=== PATIENT | female | born 1990 | race African-American/Black ===

== ENCOUNTER 2018-10-02 09:26 | Emergency (ER) | payer MEDICAID, SELFPAY ==
[2018-10-02 09:27] VITALS: BP 99/65; PULSE 68; RESP 16; TEMP 36.8; O2SAT 98; BMI 35.4
--- NOTE | 2018-10-02 09:32 | ED.DCSUM_ITS ---
History of Present Illness Chief Complaint: Syncope Informant: Patient Onset: Today Context: Sudden Onset Timing: Continuous Quality: Fatigue Location: Generalized Current Severity: Mild Maximum Severity: Moderate Worsened by: Uncertain Relieved by: Nothing Associated Symptoms: Lightheadedness, lack of energy Narrative: Patient is a 27-year-old female who presents with sudden onset of fatigue and lack of energy. Today was her first day at work. She was helping by a coworker to the floor. She states she did not feel well. She became lightheaded. Coworker assisted her to the ground. She had no loss of conscious. She had no incontinence of urine or stool. There was no seizure activity. She reports generalized weakness. She is presently taking Metformin for polycystic ovarian syndrome. She denies fever, chills night sweats. She denied ocular, visual or auditory symptoms. She denied cardiac or respiratory symptoms. She denied vomiting or diarrhea. She denies paresthesia, anesthesia or motor weakness. She denied incontinence of urine or stool. Prior similar symptoms: No Recent Illness/Hospitalization: No - Past Medical History (1) Polycystic ovarian syndrome Status: Acute Past Medical History - Allergies and Home Meds Allergies/Adverse Reactions: Allergies shellfish derived Allergy (Verified 07/13/14 19:10) Anaphylaxis Primary Care Physician: Care Physician,No Primary [Primary Care Provider] - Prior records reviewed: Yes Lives: Alone - Patient legally from Smoking Status: Never smoker Alcohol: None Review of Systems General: Reports: Malaise Eyes: Denies: Visual changes - bilaterally, Blurred Vision - bilaterally, Diplopia ENT: Denies: Rhinorrhea, Sore throat Cardiovascular: Denies: Chest pain, Palpitations, Heart racing Respiratory: Denies: Dyspnea, Cough, Dyspnea on exertion Gastrointestinal: Denies: Abdominal pain, Nausea, Vomiting, Diarrhea, Melena, Hematochezia Genitourinary: Denies: Dysuria, Hematuria, Frequency Musculoskeletal: Denies: Myalgias, Arthralgias, Neck pain, Back pain, Swelling, Extremity Pain, -, - Skin: Denies: Rash, Wounds Neurological: Reports: Weakness. Denies: Headache, Parasthesia, Numbness, -, - Endocrine: Denies: Polyuria, Polydipsia, Heat intolerance, Cold intolerance Hematologic: Denies: Easy bruising, Easy bleeding Allergy: Denies: Uticaria, Swelling of the mouth Physical Exam Vital Signs/Narrative: Vital Signs Temp Pulse Resp BP Pulse Ox 10/02/18 09:27 98.2 F 68 16 99/65 98 Inital Vital Signs reviewed: Yes General: Well nourished, Well developed, Obese, No Acute Distress Head: Normocephalic, Atraumatic Eyes: Perrl, EOMI. Negative for: Pale conjunctiva, Scleral icterus, - ENT: Moist mucous membranes, No rhinorrhea, TM's clear Neck: Supple, Nontender, No lymphadenopathy, No JVD, - Cardiovascular: Regular rate, Regular rhythm, No murmurs, Normal S1, Normal S2 Respiratory: No distress, CTA bilaterally, Chest nontender Abdomen: Soft, Nontender, Nondistended, Normal bowel sounds Extremities: Nontender, No edema Skin: Normal color, No rash, No Trauma. Negative for: Cyanosis, Diaphoresis, Jaundice Neurological: Alert, Oriented x3, Cranial nerves II-XII grossly intact, Normal Strength, Normal Sensation, Normal DTR Psychological: - - Slow psychomotor skills. Affect is flat. Diagnostic/Tx/Re-eval Laboratory Results 10/02/18 10/02/18 10/02/18 09:40 09:40 09:40 WBC 7.1 RBC 4.67 Hgb 11.0 L Hct 34.9 L MCV 74.7 L MCH 23.6 L MCHC 31.5 L RDW Std Deviation 49.8 H RDW Coeff of Devante 18.6 H Plt Count 195 MPV 11.4 Immature Gran % (Auto) 0.300 Neut % (Auto) 53.3 Lymph % (Auto) 38.6 [place] % (Auto) 6.3 Eos % (Auto) 1.1 Baso % (Auto) 0.4 Absolute Neuts (auto) 3.8 Absolute Lymphs (auto) 2.75 Absolute Nucleated RBC 0.00 Nucleated RBC % 0 Sodium 138 Potassium 3.4 L Chloride 107 Carbon Dioxide 26.0 Anion Gap 5 BUN 12 Creatinine 0.93 Estim Creat Clear Calc 76.49 Est GFR (MDRD) Af Amer 94 Est GFR (MDRD) Non-Af 78 BUN/Creatinine Ratio 12.9 Glucose 115 H Calcium 8.8 Serum , Qual NEGATIVE - Medical Decision Making With complaint of insomnia and fatigue will obtain CBC to assess for anemia and electric panel to assess for hypo-natremia and kalemia. Also assess renal function. test was obtained as well. Test results remarkable for iron deficiency anemia. There is no comparison. We will treat with iron tablets and discharged home. ED Disposition - Plan for ED Patient: Disposition: Home or Assisted Living Diagnosis: Near syncope, Fatigue associated with anemia, Iron deficiency anemia Instructions: ANEMIA, Iron Deficiency (Adult), NEAR SYNCOPE, Unknown Referrals: Care Physician,No Primary [Primary Care Provider] - Additional Instructions: Recommend following up with your primary care physician. Name of your primary care provider is located on your insurance card provided to you by [facility] Take 1 iron tablet twice a day until your primary care provider tells you to discontinue.
[2018-10-02 09:49] LABS: Absolute Lymphocyte Count 2.75 X10^3/uL (0.83-4.51); Absolute Neutrophil Count 3.8 X10^3/uL (2.0-7.7); Basophil# 0.03 X10^3/uL; Basophil% 0.4 % (0-1); Eosinophil# 0.08 X10^3/uL; Eosinophils% 1.1 % (0-5); Hematocrit 34.9 % (37-47); Lymphocyte # 2.75 X10^3/ul (4.0); Lymphocyte % 38.6 % (19-41); Mean Corp Hgb Conc 31.5 g/dL (32-36); Mean Corpuscular Hgb 23.6 pg (27.0-32.0); Mean Corpuscular Volume 74.7 fL (81-99); Mean Platelet Vol. 11.4 fl (6.2-12.0); Monocyte# 0.45 X10^3/uL; Monocyte% 6.3 % (0-10); NRBC Flagged by Analyzer 0 % (0-5); Neutrophil % 53.3 % (47-70); Platelet Count 195 K/mm3 (150-450); RBC Distribution Width CV 18.6 % (11.6-14.6); RBC Distribution Width SD 49.8 fl (35.1-43.9); Red Blood Count 4.67 M/mm3 (4.2-5.4); White Blood Count 7.1 K/mm3 (4.4-11.0)
[2018-10-02 09:58] LABS: Internal QC Validated? YES +Cl - CLEAR BKGD; Pregnancy, Serum, hCG Quali. NEGATIVE Negative
[2018-10-02 10:01] LABS: Anion Gap 5 (5-15); BUN 12 mg/dL (7-18); BUN/Creat Ratio 12.9 RATIO (10-20); Calcium,Total 8.8 mg/dL (8.5-10.1); Chloride 107 mmol/L (98-107); Creatinine, Serum 0.93 mg/dL (0.55-1.02); EST Glomerular Filtration Rate 78 mL/min (>60); Est Glom Filt Rate - Afr Amer 94 mL/min (>60); Estimated Creatinine Clearance 76.49 ml/min; Glucose 115 mg/dL (74-106); Potassium 3.4 mmol/L (3.5-5.1); Sodium Level 138 mmol/L (136-145)
[2018-10-02 10:33] VITALS: BP 91/60; PULSE 66; RESP 16; O2SAT 98
--- NOTE | 2018-10-02 10:37 | ED.VISSUMM ---
- ER Visit Summary Date of Service: 10/02/18 Chief Complaint: [] History of Present Illness: The patient is a 27 F [] Physical Examination: [] Test Results: [] Emergency Department Course and Treatment: [] Treatment Plan: [] Disposition: [] Impression: [] This note was generated with [employer] dictation software. It may contain incorrect words, spelling, and punctuation that were not noted in review of the chart prior to signing ED Disposition - Plan for ED Patient: Disposition: Home or Assisted Living Diagnosis: Near syncope, Fatigue associated with anemia, Iron deficiency anemia Instructions: ANEMIA, Iron Deficiency (Adult), NEAR SYNCOPE, Unknown Prescriptions: Ferrous Sulfate 324 mg PO BID #60 tablet. Transmission Status: Pending to [id number] Referrals: Care Physician,No Primary [Primary Care Provider] - Additional Instructions: Recommend following up with your primary care physician. Name of your primary care provider is located on your insurance card [facility] Take 1 iron tablet twice a day until your primary care provider tells you to discontinue.
== END 2018-10-02 10:42 | disposition home or self-care (01) ==
PROVIDERS: Emergency Provider Emergency Medicine
DX: R55 Syncope and collapse (principal); D50.9 Iron deficiency anemia, unspecified; E66.9 Obesity, unspecified; E28.2 Polycystic ovarian syndrome; Z79.84 Long term (current) use of oral hypoglycemic drugs
CPT/HCPCS: 80048; 84703; 85025; 99285; J7030

== ENCOUNTER → 2018-10-17 10:19 | Outpatient (CLI) | payer MEDICAID, SELFPAY ==
[2018-10-02 09:27] VITALS: BMI 35.4
== END ==
PROVIDERS: Visit Provider Nurse Practitioner Primary Care
DX: R00.1 Bradycardia, unspecified (principal)
CPT/HCPCS: 93225; 93226

== ENCOUNTER 2018-10-19 14:02 | Emergency (ER) | payer MEDICAID, SELFPAY ==
[2018-10-19 14:03] VITALS: BP 106/69; PULSE 63; RESP 15; TEMP 36.9; O2SAT 97; BMI 35.2
--- NOTE | 2018-10-19 14:36 | EKG12_ITS ---
Test Reason : CP Blood Pressure : / mmHG Vent. Rate : 064 BPM Atrial Rate : 064 BPM P-R Int : 160 ms QRS Dur : 094 ms QT Int : 394 ms P-R-T Axes : 039 017 003 degrees QTc Int : 406 ms Normal sinus rhythm Normal ECG Confirmed by GAMAL DAVIS, TY ([id number]), newspaper editor managing NAJMA BAEZ ([id number]) on 10/22/2018 11:42:30 AM Referred By: EVERARDO Confirmed By:TY YEUNG MD
[2018-10-19] MEDS: 0.9% Normal Saline 1,000 ML 150 ML IV (14:59)
[2018-10-19 15:00] VITALS: BP 102/68; BP 108/82; BP 99/68
[2018-10-19 15:14] LABS: Absolute Lymphocyte Count 2.23 X10^3/uL (0.83-4.51); Absolute Neutrophil Count 3.7 X10^3/uL (2.0-7.7); Basophil# 0.04 X10^3/uL; Basophil% 0.6 % (0-1); Eosinophil# 0.08 X10^3/uL; Eosinophils% 1.2 % (0-5); Hematocrit 37.1 % (37-47); Hemoglobin 11.5 g/dL (12.0-15.0); Lymphocyte # 2.23 X10^3/ul (4.0); Lymphocyte % 34.5 % (19-41); Mean Corpuscular Hgb 23.7 pg (27.0-32.0); Mean Corpuscular Volume 76.5 fL (81-99); Mean Platelet Vol. 11.9 fl (6.2-12.0); Monocyte# 0.42 X10^3/uL; Monocyte% 6.5 % (0-10); NRBC Flagged by Analyzer 0 % (0-5); Neutrophil # 3.68 X10^3/uL (2.7-7.7); Platelet Count 201 K/mm3 (150-450); RBC Distribution Width CV 19.3 % (11.6-14.6); RBC Distribution Width SD 52.2 fl (35.1-43.9); Red Blood Count 4.85 M/mm3 (4.2-5.4); White Blood Count 6.5 K/mm3 (4.4-11.0)
[2018-10-19 15:16] VITALS: BP 108/82; PULSE 52; RESP 12; TEMP 36.8; O2SAT 97
--- NOTE | 2018-10-19 15:30 | RAD_ITS ---
STUDY: X-RAY CHEST REASON FOR EXAM: Female, 27 years old. Chest pain. TECHNIQUE: Single AP portable view of the chest. COMPARISON: None. FINDINGS: EKG electrodes are seen. The lungs are clear and expanded. There is no demonstrated pleural abnormality. Normal size heart. Normal mediastinum and jesusita. Normal visualized pulmonary arteries. Normal visualized aortic arch and descending thoracic aorta. Normal visualized thoracic spine. Normal visualized ribs, clavicles, and shoulders. There is no demonstrated abnormality of the visualized soft tissue structures of the upper abdomen. RAD/Chest PA and Lateral IMPRESSION: Normal x-ray examination of the chest. Electronically Signed: Irving Reddy, at 15:33 EDT , Service support ,
[2018-10-19 15:36] LABS: Anion Gap 7 (5-15); BUN 9 mg/dL (7-18); BUN/Creat Ratio 8.8 RATIO (10-20); Calcium,Total 9.3 mg/dL (8.5-10.1); Chloride 109 mmol/L (98-107); Creatinine, Serum 1.02 mg/dL (0.55-1.02); EST Glomerular Filtration Rate 70 mL/min (>60); Est Glom Filt Rate - Afr Amer 84 mL/min (>60); Estimated Creatinine Clearance 69.75 ml/min; Glucose 81 mg/dL (74-106); Potassium 3.7 mmol/L (3.5-5.1); Sodium Level 142 mmol/L (136-145)
--- NOTE | 2018-10-19 15:44 | ED.VISSUMM ---
- ER Visit Summary Date of Service: 10/19/18 Chief Complaint: [Chest pain] History of Present Illness: The patient is a 27 F [presents with chest pain that started just prior to arrival in the emergency department. Patient states that she was walking back to the hospital to return her 48-hour Holter monitor when she developed pain in her mid and central chest that she described as sharp and at times tightness. Patient states pain somewhat worse with breathing. The reason for the Holter monitor is that she is had near syncopal episodes over the last month. Patient was seen several weeks ago in this emergency department for that and had blood work was unremarkable as well as a test that was negative. Patient has history of PCOS and anemia. She denies recent travel or surgery. Patient states that her mother has had heart attacks and she is in her 40s although she is never had any type of intervention such as stents or open heart surgery.] Physical Examination: [HEENT-PERRLA, EOMI. Cranial nerves II through XII grossly intact. TMs clear. Mucous membranes moist. No adenopathy. Cardiovascular-regular rate and rhythm without murmur or ectopy Lungs-clear to auscultation, chest wall stable without crepitus or subcu emphysema Abdomen-normoactive bowel sounds, soft, nontender, no rebound or rigidity, no peritoneal signs. Extremities-intact ?4, normal range of motion, normal pulses, atraumatic] Test Results: [CBC with differential obtained showing a 6.5, hemoglobin 11.5, hematocrit 37. Chemistries are unremarkable. Troponin was less than 0.15. Chest x-ray was normal. D-dimer was less than 0.27.] Emergency Department Course and Treatment: [He was placed on a ekg monitor and observed.] Treatment Plan: [Given patient's negative work-up I certainly do not feel she is having an acute coronary syndrome and her symptoms have significantly improved. Patient will be discharged to home with instructions to follow-up with her primary care physician within next 3 to 5 days.] Disposition: [Discharged home in stable condition] Impression: [Chest [id number] uncertain] This note was generated with [employer] software. It may contain incorrect words, spelling, and punctuation that were not noted in review of the chart prior to signing ED Disposition - Plan for ED Patient: Referrals: Care Physician,No Primary [Primary Care Provider] -
[2018-10-19 16:05] LABS: D-Dimer Quantitative (DVT/PE) < 0.27 FEU/ug/m (0.27-0.49)
[2018-10-19 16:08] VITALS: BP 119/63; PULSE 59; RESP 25; O2SAT 98
--- NOTE | 2018-10-19 16:10 | ED.DEP ---
ED Disposition - Plan for ED Patient: Instructions: CHEST PAIN, Uncertain Cause Referrals: Care Physician,No Primary [Primary Care Provider] - Maxine Garcia MD [STAFF PHYSICIAN] - 3-5 Days
[2018-10-19 16:21] VITALS: BP 119/63; PULSE 60; RESP 18; O2SAT 98
== END 2018-10-19 16:22 | disposition home or self-care (01) ==
LOC: ED 14:44
PROVIDERS: Emergency Provider Emergency Medicine
DX: R07.89 Other chest pain (principal); E28.2 Polycystic ovarian syndrome; D64.9 Anemia, unspecified; Z79.84 Long term (current) use of oral hypoglycemic drugs
CPT/HCPCS: 71046; 80048; 84484; 85025; 85379; 93005; 96360; 99285; J7030; A4216

== ENCOUNTER 2023-02-22 20:49 | Emergency (ER) | payer MEDICAID, SELFPAY ==
[2023-02-22 20:50] VITALS: BP 136/77; PULSE 69; RESP 16; TEMP 36.1; O2SAT 100; BMI 36.8
[2023-02-22 21:16] VITALS: BP 111/64; PULSE 69; RESP 18; O2SAT 98
--- NOTE | 2023-02-22 21:21 | CT_ITS ---
EXAM: CT ANGIOGRAPHY HEAD WITHOUT AND WITH INTRAVENOUS CONTRAST CLINICAL INDICATION: headache TECHNIQUE: [place]/head CT angiography protocol performed without and with intravenous contrast. CTDIvol = ( 26.12 ) mGy, DLP = ( 1113.15 ) mGycm This CT exam was performed using one or more of the following dose reduction techniques: automated exposure control, adjustment of the mA and/or kV according to patient size, and/or use of iterative reconstruction technique. MIP reconstructed images were created and reviewed. CONTRAST: IV 100mL Isovue-370 COMPARISON: No relevant prior studies available. FINDINGS: VASCULATURE: RIGHT INTERNAL CAROTID ARTERY: No acute findings. No significant stenosis at the intracranial/visualized segments. No aneurysm. RIGHT ANTERIOR CEREBRAL ARTERY: Unremarkable. No occlusion or significant stenosis. Anterior communicating artery is present. No aneurysm. RIGHT MIDDLE CEREBRAL ARTERY: Unremarkable. No occlusion or significant stenosis. No aneurysm. RIGHT POSTERIOR CEREBRAL ARTERY: Unremarkable. No occlusion or significant stenosis. No aneurysm. RIGHT VERTEBRAL ARTERY: Unremarkable as visualized. No significant stenosis at the intradural/visualized segments. No aneurysm. LEFT INTERNAL CAROTID ARTERY: No acute findings. No significant stenosis at the intracranial/visualized segments. No aneurysm. LEFT ANTERIOR CEREBRAL ARTERY: Unremarkable. No occlusion or significant stenosis. No aneurysm. LEFT MIDDLE CEREBRAL ARTERY: Unremarkable. No occlusion or significant stenosis. No aneurysm. LEFT POSTERIOR CEREBRAL ARTERY: Unremarkable. No occlusion or significant stenosis. No aneurysm. LEFT VERTEBRAL ARTERY: Unremarkable as visualized. No significant stenosis at the intradural/visualized segments. No aneurysm. BASILAR ARTERY: Unremarkable. No significant stenosis. No aneurysm. OTHER VASCULATURE: No vascular malformation. HEAD: BRAIN AND EXTRA-AXIAL SPACES: Unremarkable. No intra- or extra-axial hemorrhage. No evidence of acute infarct. No intracranial mass or mass effect. There is preservation of the banda/white matter interface. Posterior fossa structures are unremarkable. Ventricles are appropriate for age. No hydrocephalus. Basal cisterns are patent. BONES/JOINTS: Unremarkable. No discrete lytic or blastic abnormalities. SINUSES: Unremarkable as visualized. Clear. MASTOID AIR CELLS: Unremarkable as visualized. Clear. ORBITS: Visualized globes, extraocular muscles, optic nerves and retrobulbar fat appear unremarkable. CT/CTA Head W/WO Contrast IMPRESSION: Negative head CTA. Electronically Signed: Tay Marroquin MD at 22:59 EST ,
--- NOTE | 2023-02-22 21:23 | EX.ED.VIS.HA ---
HPI History of Present Illness Chief Complaint: Headache Informant: patient Onset/Context/Timing Onset: Days Context: Sudden Timing: Continuous Quality -Headache: Positive for Dull and Tightness; Negative for Similar Prior Headaches Current Severity: Moderate Maximum Severity: Moderate Associated Symptoms/Injury Associated Symptoms: Negative for Fever, Nausea, Vomiting, Sore Throat, Sinus Pressure, Numbness, Tingling, Preceding Aura, Visual Changes, Blurred Vision, Photophobia or Visual Loss Injury - MCKEE: Negative for Direct Trauma, Fall or Assault Narrative Narrative: 32-year-old female history of anxiety, depression, PTSD. No prior or recent head or neck trauma. Patient does not know her family history. Send on Monday she felt a bursting in my brain that occurred 3 times.. States that she has a headache with pressure. She is not on any blood thinners. No history of brain aneurysm or migraine headaches. No fever or sinus congestion. Denies any nausea. No weakness. Prior similar symptoms: No Recent Illness/Hospitalization: No PFSH PFSH Medical History Anxiety Borderline personality disorder Depression PTSD (post-traumatic stress disorder) Home Medications metformin 500 mg tablet 500 mg PO DAILY 06/01/14 [History Last Taken 10/18/18] ferrous sulfate 324 mg (65 mg iron) tablet,delayed release 324 mg PO BID ##60 10/02/18 [Rx Last Taken 10/18/18] Allergy/AdvReac Type Severity Reaction Status Date / Time shellfish derived Allergy Anaphylaxis Verified 02/22/23 20:53 Social History Smoking Status: Former smoker ROS ROS ED ROS Narrative Headache. Review of Systems ROS Unobtainable: Denies due to encephalopathy Constitutional Constitutional ED: Denies chills or fever(s) Eyes Eyes: Denies blurry vision ENT ENT ED: Denies ear pain Cardiovascular Cardiovascular: Denies chest pain or palpitations Respiratory/Chest Respiratory/Chest: Denies cough or dyspnea Gastrointestinal Gastrointestinal: Denies abdominal pain Genitourinary Genitourinary ED: Denies dysuria or hematuria Musculoskeletal Musculoskeletal: Denies arthralgias or back pain Integumentary Denies abscess or Abrasions Neurologic Neurologic: Reports headache(s); Denies paresthesias or weakness Psychiatric Psychiatric: Reports anxiety Endocrine Endocrinology: Denies polydipsia or polyphagia Hematologic/Lymphatic Hematologic/Lymphatic: Denies easy bleeding, easy bruising or lymphadenopathy Allergic/Immunologic Allergic/Immunologic ED: Denies mouth swelling, tongue swelling or urticaria EXAM Physical Exam Narrative Exam Narrative: Well-appearing 32-year-old female. Vital signs are stable afebrile. H EENT exam unremarkable. Pupils are reactive light. Extra motions are intact. No facial droop. Normal speech. No trauma or tenderness to her scalp or head. Neck nontender. No meningismus. No lymphadenopathy. Normal range of motion her neck. Able to touch chin to her chest. Lungs clear to auscultation bilaterally. Heart regular rhythm rate about 70 no murmur. Chest were nontender. Abdomen soft nontender. Back nontender. Moving all 4 extremities. 5-5 community support associate strength. Dorsi plantarflexion intact. Neurologic exam normal. NIH 0. Awake and alert. Answering questions. Normal community support associate strength. Oytcfl-[id number] and [id number] within normal limits. No focal motor deficits. Const Vital Signs: 02/22/23 20:50 02/22/23 21:16 Temperature 97 F L Temperature Source Temporal Pulse Rate 69 69 Respiratory Rate 16 18 Blood Pressure 136/77 H 111/64 Blood Pressure Mean 96 79 Pulse Ox 100 98 Oxygen Delivery Method Room Air Room Air Positive well nourished and well developed; Negative for cachectic, contractures or unkempt General Appearance ED: well developed and NAD; Negative for unkempt, cachectic, contractures, cyanotic or diaphoretic Nutritional Appearance: Negative for cachectic HEENT Reports normocephalic and moist mucous membranes atraumatic; Negative for trauma, tenderness, temporal artery tenderness or vesicular rash Face and Sinus: Negative for sinus tenderness Eyes PERRL and EOMs intact bilaterally General Eye ED: Negative for pale conjunctiva or scleral icterus Neck no lymphadenopathy, supple, no meningeal signs and no JVD General: Negative for tenderness Resp normal respiratory effort and clear to auscultation bilaterally Effort and Inspection: Negative for retractions Auscultation: Negative for rales, rhonchi or wheezes Cardio regular rate, regular rhythm, S1 normal heart sound, S2 normal heart sound and no murmurs Rate: Negative for bradycardia or tachycardic Rhythm: Negative for abnormal rhythm GI non-tender and non-distended Auscultation: normoactive bowel sounds Palpation: soft; Negative for firm or tender Back/Spine no CVA tenderness General Back: Negative for CVA tenderness Cervical Spine: Negative for cervical spine tenderness Thoracic Spine / Upper Back: Negative for thoracic spinal tenderness Lumbar Spine / Lower Back: Negative for lumbar spinal tenderness Extremity normal to inspection, full ROM and normal capillary refill General Extremety ED: Negative for edema or tenderness General Extremity: Negative for edema Neuro oriented x3, CN's II-XII intact bilaterally and no sensory deficits noted Sensorium / Orientation: awake, alert, oriented to person, oriented to place and oriented to time; Negative for orientation impaired, lethargic or stuporous Coordination / Balance: [id number] test normal and [id number] test normal Speech: speech normal Motor Exam: strength 5/5 throughout Psych mental status grossly normal Appearance: Negative for unkempt Attitude: No agitated Mood & Affect: Negative for depressed, anxious or tearful Skin General Skin Exam: elasticity normal Lesions: no lesions Rashes: no rashes Trauma: Negative for abrasion MDM MDM MDM Narrative Medical decision making narrative: 32-year-old male with acute onset headache 2 to 3 days ago. Exam is normal. No focal neurological deficits. She will be treated with Toradol and Benadryl. CTA of her brain will be obtained to rule out bleed or aneurysm. Clinically my suspicion is low. Repeat exam at 11 PM patient doing well. Headache is resolving with the IV Benadryl and Toradol. Exam unchanged. Neurologic exam remains normal. Awaiting official radiology interpretation of the CTA. History & Record Review Discussion w/independent historian: Patient Additional record(s) reviewed:: Prior inpatient record, Prior outpatient record, Prior ED visit and Prior labs Radiography Diagnostic Testing: Clinical Impression(s) from Imaging Studies Head CTA 02/22/23 21:21 IMPRESSION: Negative head CTA. Electronically Signed: Tay Marroquin MD at 22:59 EST , ETA read by the radiologist as normal. Discharge Plan Triage Chief Complaint: Headache ED Provider: Livan Brennan Dx/Rx/DC Orders Clinical Impression: History of post traumatic stress disorder, Headache Instructions: ED Headache Unspecified Prescriptions: No Action metformin 500 MG tablet 500 mg PO DAILY ferrous sulfate 324 MG tablet,delayed release (DR/EC) 324 mg PO BID Qty: 60 2RF Primary Care Provider: Care Physician,No Primary Referrals: Nacho Graves MD [Non-Staff] - As Needed Care Physician,No Primary [Primary Care Provider] - Activity Restrictions/Additional Instructions: Plenty of fluids and rest. Motrin and Tylenol for pain. Follow-up if not improving. Disposition Disposition: Home, Self Care
[2023-02-22] MEDS: Ketorolac 30 MG/ML Syringe IV (21:34)
[2023-02-22] MEDS: DiphenhydrAMINE 50 MG/ML Syringe 25 MG IV (21:35)
[2023-02-22 23:16] VITALS: BP 120/78; PULSE 64; RESP 18; O2SAT 100
== END 2023-02-22 23:17 | disposition home or self-care (01) ==
LOC: ED 23:16
PROVIDERS: Emergency Provider Emergency Medicine; Visit Provider Emergency Medicine
DX: R51.9 Headache, unspecified (principal); Z87.891 Personal history of nicotine dependence; F43.10 Post-traumatic stress disorder, unspecified
CPT/HCPCS: 70496; 96374; 96375; 99283; Q9967; A4216

== ENCOUNTER 2023-03-18 02:19 | Emergency (ER) | payer MEDICAID, SELFPAY ==
[2023-03-18 02:20] VITALS: BP 116/68; PULSE 78; RESP 15; TEMP 36.4; O2SAT 98; BMI 41.3
--- NOTE | 2023-03-18 02:29 | EDS_ITS ---
HPI History of Present Illness Chief Complaint: General Illness Detail of Chief Complaint: Shaking. Informant: patient and spouse/S.O. Onset/Context/Timing Onset: Today Context: Sudden Onset Current Severity: Gone Maximum Severity: Mild Narrative Narrative: 32-year-old female history of PTSD, anxiety, depression and pseudoseizures. Patient states that tonight she was lying in bed she was awake and alert. And she started shaking. She remembers the whole incident. No headache. No chest pain or shortness of breath. No abdominal pain. It is since resolved. She does feel mildly nauseated. Patient feels much better now. She was seen and evaluated emergency department about 3 weeks ago and had a CTA of the brain at that time that was negative. Prior similar symptoms: Yes Recent Illness/Hospitalization: No PFSH PFSH Medical History Anxiety Borderline personality disorder Depression PTSD (post-traumatic stress disorder) Home Medications metformin 500 mg tablet 500 mg PO DAILY 06/01/14 [History Last Taken 10/18/18] ferrous sulfate 324 mg (65 mg iron) tablet,delayed release 324 mg PO BID ##60 10/02/18 [Rx Last Taken 10/18/18] Allergy/AdvReac Type Severity Reaction Status Date / Time shellfish derived Allergy Anaphylaxis Verified 03/18/23 02:21 Social History Smoking Status: Former smoker ROS ROS ED ROS Narrative Nausea. Review of Systems ROS Unobtainable: Denies due to encephalopathy Constitutional Constitutional ED: Denies chills or fever(s) Eyes Eyes: Denies blurry vision ENT ENT ED: Denies ear pain Cardiovascular Cardiovascular: Denies chest pain Respiratory/Chest Respiratory/Chest: Denies cough or dyspnea Gastrointestinal Gastrointestinal: Reports nausea; Denies abdominal pain, constipation, diarrhea, melena or vomiting Genitourinary Genitourinary ED: Denies dysuria Musculoskeletal Musculoskeletal: Denies arthralgias or back pain Integumentary Denies abscess or Abrasions Neurologic Neurologic: Denies headache(s) Psychiatric Psychiatric: Denies anxiety Endocrine Endocrinology: Denies cold intolerance Hematologic/Lymphatic Hematologic/Lymphatic: Reports none Allergic/Immunologic Allergic/Immunologic ED: Denies mouth swelling, tongue swelling or urticaria EXAM Physical Exam Narrative Exam Narrative: Well-appearing 32-year-old female. Vital signs are stable afebrile. H EENT exam unremarkable atraumatic. Pupils round reactive light. Normal speech. No facial droop. No trauma. Neck nontender no meningismus. Lungs clear to auscultation. Heart regular rhythm no murmur rate about 75. Chest wall and ribs nontender. Abdomen soft nontender. Moving all 4 extremities. 5-5 special education assistant strength. Dorsi plantarflexion intact. Neurologic exam normal. Awake and alert. Answering questions and following commands. Fingertip to nose within normal limits. NIH of 0. No seizure activity. Does not appear postictal. Const Vital Signs: 03/18/23 02:20 03/18/23 02:20 Temperature 97.6 F L Temperature Source Oral Pulse Rate 78 Respiratory Rate 15 Respiratory Effort Normal Non-Labored Respiratory Pattern Normal Blood Pressure 116/68 Blood Pressure Mean 84 Pulse Ox 98 Oxygen Delivery Method Room Air Positive well nourished and well developed; Negative for cachectic, contractures or unkempt General Appearance ED: well developed and NAD; Negative for unkempt, cachectic, contractures, cyanotic, diaphoretic or pallor Nutritional Appearance: Negative for cachectic HEENT Reports moist mucous membranes; Denies TM's clear Negative for trauma or tenderness Tympanic Membrane ED: Negative for TM's clear Eyes PERRL and EOMs intact bilaterally General Eye ED: Negative for pale conjunctiva, scleral icterus or other Neck no lymphadenopathy, supple and no JVD General: Negative for tenderness Lymph Lymphatic: Negative for other Chest Wall inspection of chest normal and palpation of chest normal Chest: Negative for other Resp normal respiratory effort and clear to auscultation bilaterally Effort and Inspection: Negative for retractions Auscultation: Negative for rales, rhonchi or wheezes Cardio regular rate, regular rhythm, S1 normal heart sound, S2 normal heart sound and no murmurs Palpation: Negative for palpable S3 or palpable S4 Rate: Negative for bradycardia or tachycardic Rhythm: Negative for abnormal rhythm GI normal to inspection, nondistended, normoactive bowel sounds, non-tender, non- distended and no masses Inspection: Negative for abdominal distention Auscultation: normoactive bowel sounds Palpation: soft; Negative for tender or guarding Bladder / Kidney Exam: No other Back/Spine no CVA tenderness General Back: Negative for CVA tenderness Cervical Spine: Negative for cervical spine tenderness Thoracic Spine / Upper Back: Negative for thoracic spinal tenderness Lumbar Spine / Lower Back: Negative for lumbar spinal tenderness Extremity normal to inspection General Extremety ED: Negative for edema or tenderness General Extremity: Negative for edema Neuro oriented x3 and CN's II-XII intact bilaterally Sensorium / Orientation: alert; Negative for orientation impaired, lethargic or stuporous Motor Exam: strength 5/5 throughout; Negative for general weakness or strength abnormal Psych mental status grossly normal Appearance: Negative for unkempt Attitude: No agitated Mood & Affect: Negative for depressed, anxious or tearful Skin no rashes or lesions noted, no wounds and skin turgor normal General Skin Exam: elasticity normal; Negative for jaundice or pallor Lesions: No lesion noted Rashes: No rashes noted Trauma: Negative for abrasion Wounds: Negative for wounds noted MDM MDM MDM Narrative Medical decision making narrative: 32-year-old has a normal exam. He has PTSD and anxiety. I think this was related to that. I do not think this was a seizure. She does not need any labs or imaging. She will be given Zofran p.o. for nausea and discharged home. Both the patient and are comfortable with that plan. History & Record Review Discussion w/independent historian: Patient and Family Additional record(s) reviewed:: Prior inpatient record, Prior outpatient record, Prior ED visit and Prior labs Discharge Plan Triage Chief Complaint: General Illness ED Provider: Livan Brennan Dx/Rx/DC Orders Clinical Impression: Anxiety, History of post traumatic stress disorder Instructions: ED Anxiety Reaction Prescriptions: No Action metformin 500 MG tablet 500 mg PO DAILY ferrous sulfate 324 MG tablet,delayed release (DR/EC) 324 mg PO BID Qty: 60 2RF Primary Care Provider: Care Physician,No Primary Referrals: Care Physician,No Primary [Primary Care Provider] - Activity Restrictions/Additional Instructions: Follow-up with your doctor as needed.
[2023-03-18] MEDS: Ondansetron ODT 4 MG Tablet PO (02:35)
[2023-03-18 02:41] VITALS: BP 107/66; PULSE 75; RESP 16; O2SAT 98
== END 2023-03-18 02:43 | disposition home or self-care (01) ==
PROVIDERS: Emergency Provider Emergency Medicine; Visit Provider Emergency Medicine
DX: F41.9 Anxiety disorder, unspecified (principal); Z87.891 Personal history of nicotine dependence; F43.10 Post-traumatic stress disorder, unspecified; R11.0 Nausea
CPT/HCPCS: 99282

== ENCOUNTER 2023-11-30 11:21 | Emergency (ER) | payer MEDICAID, SELFPAY ==
[2023-11-30 11:22] VITALS: BP 111/70; PULSE 86; RESP 16; TEMP 35.8; O2SAT 98; BMI 38.7
[2023-11-30 11:35] VITALS: TEMP 36.8
--- NOTE | 2023-11-30 11:36 | EDS_ITS ---
HPI History of Present Illness Chief Complaint: General Illness Detail of Chief Complaint: Viral upper respiratory like symptoms Informant: patient Onset/Context/Timing Onset: Weeks (1.0) Context: Sudden Onset Timing: Continuous and Waxes and wanes Quality: Nonproductive cough, congestion, aches Worsened by: Nothing Relieved by: Nothing Associated Symptoms Associated Symptoms: Sensation of vomiting after coughing Narrative Narrative: Patient 33-year-old female. She reports subjective fever. She does complain of some facial discomfort. She does endorse nasal congestion. She denies sore throat. Her cough is nonproductive. She is felt subjectively feverish. Has not taken her temperature. She complains of nausea with coughing only. No diarrhea. No urologic symptoms. No rash presently. Prior similar symptoms: Yes Recent Illness/Hospitalization: No [facility] Medical History Borderline personality disorder PTSD (post-traumatic stress disorder) Depression Anxiety Home Medications ?Medication ?Instructions ?Recorded ?Last Taken ?Type metformin 500 mg tablet 500 mg PO DAILY 06/01/14 10/18/18 History ferrous sulfate 324 mg (65 mg 324 mg PO BID ##60 10/02/18 10/18/18 Rx iron) tablet,delayed release Allergy/AdvReac Type Severity Reaction Status Date / Time shellfish derived Allergy Anaphylaxis Verified 11/30/23 11:21 Social History (Updated 11/30/23 @ 11:[address] Mango Garcia MD) household members: significant other Smoking Status: Former smoker ROS ROS ED Constitutional Constitutional ED: Reports fever(s), subjective and sweats; Denies chills or weight loss Eyes Eyes: Reports other Details: No photophobia ; Denies blurry vision, change in vision or diplopia ENT ENT ED: Reports other Details: Nasal congestion ; Denies ear pain, rhinorrhea or sore throat Cardiovascular Cardiovascular: Denies chest pain, orthopnea, palpitations or paroxysmal nocturnal dyspnea Respiratory/Chest Respiratory/Chest: Reports cough; Denies dyspnea, dyspnea on exertion, orthopnea, paroxysmal nocturnal dyspnea or sputum Gastrointestinal Gastrointestinal: Reports nausea; Denies abdominal pain, diarrhea or vomiting Genitourinary Genitourinary ED: Denies dysuria, hematuria or urinary frequency Musculoskeletal Musculoskeletal: Reports myalgias; Denies neck pain Integumentary Denies rash Neurologic Neurologic: Reports weakness EXAM Physical Exam Const Vital Signs: 11/30/23 11:22 11/30/23 11:35 Temperature 96.4 F L 98.3 F Temperature Source Temporal Oral Pulse Rate 86 Respiratory Rate 16 Blood Pressure 111/70 Blood Pressure Mean 83 Pulse Ox 98 Oxygen Delivery Method Room Air Positive well nourished and well developed General Appearance ED: well developed and NAD; Negative for cyanotic, diaphoretic or pallor HEENT Reports TM's clear and dry mucous membranes HEENT Narrative: Patient not urinated since this morning. She does not know if the urine was darker in color. There is no tenderness over the frontal or maxillary sinuses. Tympanic Membrane ED: Yes TM's clear Mouth ED: Yes dry mucous membranes Mouth: dry mucous membranes Eyes PERRL and EOMs intact bilaterally General Eye ED: Negative for pale conjunctiva or scleral icterus Neck no lymphadenopathy, supple and no JVD Resp normal respiratory effort and clear to auscultation bilaterally Cardio regular rate, regular rhythm, S1 normal heart sound, S2 normal heart sound and no murmurs GI normal to inspection, nondistended, normoactive bowel sounds, non-tender and non-distended; Negative for hepatosplenomegaly or no masses Back/Spine Back/Spine Narrative: Inspection is normal. Extremity normal to inspection Neuro oriented x3 and CN's II-XII intact bilaterally Sensorium / Orientation: alert Skin no rashes or lesions noted, no wounds and skin turgor normal General Skin Exam: Negative for jaundice or pallor MDM MDM MDM Narrative Medical decision making narrative: Patient presents with systemic viral upper respiratory type symptoms. She feels warmer than documented temperature. Temperature was a tympanic. Patient was informed she is going to be sick for another 7 to 10 days. In my opinion there is no indication for laboratory testing or imaging. Discharge Plan Triage Chief Complaint: General Illness ED Provider: Mango Garcia Dx/Rx/DC Orders Clinical Impression: Upper respiratory infection with cough and congestion, History of post traumatic stress disorder Prescriptions: No Action metformin 500 MG tablet 500 mg PO DAILY ferrous sulfate 324 MG tablet,delayed release (DR/EC) 324 mg PO BID Qty: 60 2RF Primary Care Provider: Care Physician,No Primary Referrals: Care Physician,No Primary [Primary Care Provider] - Activity Restrictions/Additional Instructions: You may be ill for another 7 to 10 days. Print Language: [place] Disposition Disposition: Home, Self Care
== END 2023-11-30 11:56 | disposition home or self-care (01) ==
LOC: ED 11:55
PROVIDERS: Emergency Provider Emergency Medicine; Referring Provider Emergency Medicine; Visit Provider Emergency Medicine
DX: J06.9 Acute upper respiratory infection, unspecified (principal); Z87.891 Personal history of nicotine dependence; R05.9 Cough, unspecified; F43.10 Post-traumatic stress disorder, unspecified
CPT/HCPCS: 99282

== ENCOUNTER 2023-12-04 11:06 | Emergency (ER) | payer MEDICAID, SELFPAY ==
[2023-12-04 11:06] VITALS: BP 98/67; PULSE 79; RESP 16; TEMP 35.8; O2SAT 100; BMI 38.3
--- NOTE | 2023-12-04 11:49 | CT_ITS ---
STUDY: CT BRAIN WITHOUT CONTRAST REASON FOR EXAM: Female, 33 years old. Left head injury. Headache/nausea. RADIATION DOSAGE (If Supplied By Facility): CTDIvol = ( 44.99 ) mGy, DLP = ( 745.49 ) mGycm TECHNIQUE: Transaxial CT imaging of the brain was performed without administration of intravenous contrast material. Individualized dose optimization techniques were used for this CT. COMPARISON: Comparison is made with prior study dated February 22, 2023. FINDINGS: Normal soft tissue structures. Normal calvarium. Normal size ventricles and extra-axial spaces for the patient''s age. Normal white matter tracts of the cerebral hemispheres. Incidental note is made of a cavum septum lucidum. Normal basal ganglia and thalami. Normal brainstem. Normal cerebellum. There is no intracranial hemorrhage. There are no findings of an acute ischemic infarction. Normal visualized paranasal sinuses. CT/Brain/Head without Contrast IMPRESSION: Normal unenhanced CT scan of the brain. Electronically Signed: Irving Reddy MD at 12:29 EDT ,
--- NOTE | 2023-12-04 11:49 | EX.ED.VIS.HA ---
HPI History of Present Illness Chief Complaint: Headache Informant: patient and family Narrative Narrative: 33-year-old female states she was at work yesterday and accidentally walked into a metal shelf on the wall, hitting her head on the left side, it hurt despite taking ibuprofen and putting some ice on it that she was allowed to go home and she woke up today having a worse headache, some nausea. She denies any vision changes or focal neurologic symptoms. She has had no loss of consciousness since this occurred. No other injuries. No history of migraines. [facility] Medical History Borderline personality disorder PTSD (post-traumatic stress disorder) Depression Anxiety Home Medications ?Medication ?Instructions ?Recorded ?Last Taken ?Type metformin 500 mg tablet 500 mg PO DAILY 06/01/14 10/18/18 History ferrous sulfate 324 mg (65 mg 324 mg PO BID ##60 10/02/18 10/18/18 Rx iron) tablet,delayed release Allergy/AdvReac Type Severity Reaction Status Date / Time shellfish derived Allergy Anaphylaxis Verified 12/04/23 11:09 Social History (Updated 11/30/23 @ 11:[address] Mango Garcia MD) household members: significant other Smoking Status: Former smoker ROS ROS ED Eyes Eyes: Denies change in vision Gastrointestinal Gastrointestinal: Reports nausea; Denies vomiting Integumentary Denies laceration, rash or wounds Neurologic Neurologic: Reports headache(s); Denies paresthesias or weakness EXAM Physical Exam Const Vital Signs: 12/04/23 11:06 Temperature 96.4 F L Temperature Source Temporal Pulse Rate 79 Respiratory Rate 16 Blood Pressure 98/67 Blood Pressure Mean 77 Pulse Ox 100 Oxygen Delivery Method Room Air Positive well nourished and well developed General Appearance ED: well developed and NAD HEENT Reports normocephalic and TM's clear HEENT Narrative: Mild hematoma and tenderness left temporal scalp, no bogginess, crepitance, depression. There is definitely asymmetry. No other signs of head trauma. No Hernandez sign, no hemotympanum, no CSF otorhinorrhea, no facial trauma/fractures or raccoon eyes. trauma and tenderness Tympanic Membrane ED: Yes TM's clear Eyes PERRL and EOMs intact bilaterally Eyes Narrative: No extraocular entrapment Neck supple General: Negative for tenderness Extremity normal to inspection and full ROM Neuro oriented x3, CN's II-XII intact bilaterally and no sensory deficits noted Michelle Coma Scale: document GCS findings Spontaneous Obeys Commands Oriented 15 Sensorium / Orientation: awake and alert Speech: speech normal Gait (Neuro): normal gait Psych mental status grossly normal Skin Lesions: no lesions Rashes: no rashes MDM MDM MDM Narrative Medical decision making narrative: CT of the head was obtained in order to rule out intracranial hemorrhage such as epidural hematoma or skull fracture, I reviewed the images and report which I agree with, it is negative. Patient was given Zofran initially followed by ibuprofen after the CT is negative, given appropriate discharge instructions for supportive care and rest. Radiography Diagnostic Testing: Clinical Impression(s) from Imaging Studies Brain CT 12/04/23 11:49 IMPRESSION: Normal unenhanced CT scan of the brain. Electronically Signed: Irving Reddy MD at 12:29 EDT , Discharge Plan Triage Chief Complaint: Headache ED Provider: Devin Rodriguez Dx/Rx/DC Orders Clinical Impression: Closed head injury without loss of consciousness, Contusion of scalp Instructions: ED Head Injury (Adult) Prescriptions: No Action metformin 500 MG tablet 500 mg PO DAILY ferrous sulfate 324 MG tablet,delayed release (DR/EC) 324 mg PO BID Qty: 60 2RF Primary Care Provider: Care Physician,No Primary Referrals: Dianna Johnston [Non-Staff] - 1 Week if not improving Print Language: [place] Disposition Disposition: Home, Self Care
[2023-12-04] MEDS: Ondansetron ODT 4 MG Tablet 8 MG PO (11:54)
[2023-12-04 13:06] VITALS: BP 121/84; PULSE 75; RESP 16; O2SAT 97
[2023-12-04] MEDS: Ibuprofen 600 MG Tablet PO (13:48)
[2023-12-04 13:52] VITALS: BP 118/79; PULSE 74; RESP 16; TEMP 36.4; O2SAT 98
== END 2023-12-04 13:54 | disposition home or self-care (01) ==
PROVIDERS: Emergency Provider Emergency Medicine; Visit Provider Emergency Medicine
DX: S00.03XA Contusion of scalp, initial encounter (principal); Z87.891 Personal history of nicotine dependence; S09.90XA Unspecified injury of head, initial encounter; W22.09XA Striking against other stationary object, initial encounter; Y93.01 Activity, walking, marching and hiking; Y92.89 Other specified places as the place of occurrence of the external cause
CPT/HCPCS: 70450; 99282; J7030; A4216